=== PATIENT | male | born 1985 | race American Indian/Alaskan Native ===

== ENCOUNTER 2019-04-03 21:30 | Emergency (ER) | payer SELFPAY ==
--- NOTE | 2019-04-03 21:50 | Emergency Department Report ---
Blank Doc - Documentation Documentation: This is a 33-year-old male that presents with medical evaluation for psych. S tatkuldeep has been taking his medications. Denies any SI/HI. This initial assessment/diagnostic orders/clinical plan/treatment(s) is/are subject to change based on patient's health status, clinical progression and re- assessment by fellow clinical providers in the ED. Further treatment and workup at subsequent clinical providers discretion. Patient/guardians urged not to elope from the ED as their condition may be serious if not clinically assessed and managed. Initial orders include: 1- Patient sent to MAIN ED for further evaluation and treatment 2- gang hemstitching machine operator was notified to have patient be brought back [facility]. 3- RN was notified to keep patient as close range and observation until room available 4- labs
[2019-04-03 21:52] VITALS: BP 137/97
[2019-04-03 22:41] LABS: Basophils % (Auto) 0.4 % (0.0-1.8); Eosinophils # (Auto) 0.1 K/mm3 (0.0-0.4); Eosinophils % (Auto) 3.4 % (0.0-4.3); Hemoglobin 14.3 gm/dl (11.8-15.2); Lymphocytes % (Auto) 27.4 % (13.4-35.0); Mean Corpuscular HGB Conc 34 % (32-34); Mean Corpuscular Volume 86 fl (84-94); Monocytes # (Auto) 0.2 K/mm3 (0.0-0.8); Monocytes % (Auto) 5.7 % (0.0-7.3); Platelet Count 183 K/mm3 (140-440); Red Blood Count 4.88 M/mm3 (3.65-5.03); Red Cell Distribution Width 15.4 % (13.2-15.2)
[2019-04-03 23:01] LABS: BUN/Creatinine Ratio 9; Blood Urea Nitrogen 9 mg/dL (9-20); Calcium 9.1 mg/dL (8.4-10.2); Hemolysis Index 5
== END 2019-04-04 00:01 | disposition left against medical advice (07) ==
LOC: ED 21:30
DX: R45.81 Low self-esteem (principal); Z53.21 Procedure and treatment not carried out due to patient leaving prior to being seen by health care provider
CPT/HCPCS: 36415; 80048; 85025; G0480; 80320

== ENCOUNTER 2019-04-08 13:24 | Emergency (ER) | payer SELFPAY ==
--- NOTE | 2019-04-08 13:41 | Emergency Department Report ---
Blank Doc - Documentation Documentation: his is a 33-year-old male that presents with SI. Stated has depression. Stated wants to overdose. Denies any HI. This initial assessment/diagnostic orders/clinical plan/treatment(s) is/are subject to change based on patient's health status, clinical progression and re-assessment by fellow clinical providers in the ED. Further treatment and workup at subsequent clinical providers discretion. Patient/guardians urged not to elope from the ED as their condition may be serious if not clinically assessed and managed. Initial orders include: 1- Patient sent to MAIN ED for further evaluation and treatment 2- carpet cleaner was notified to have patient be brought back [facility]. 3- RN was notified to keep patient as close range and observation until room available 4- Patient presents with substantial risk of imminent harm to self, appears to be so unable to care for his/her own physical health and safety as to create an imminently life-endangering crisis, and has committed/expressed life endangering crisis to self. Due to this and other complaints, patient is put on 1013.
[2019-04-08 14:23] LABS: Bacteria,Urine 1+ /HPF (Negative); Bilirubin,Urine NEG (Negative); Blood,Urine NEG (Negative); Color,Urine Straw (Yellow); Mucus,Urine FEW /HPF; Protein,Urine <15 mg/dL mg/dL (Negative); Urobilinogen,Urine < 2.0 mg/dL (<2.0); WBC,Urine < 1.0 /HPF (0.0-6.0)
--- NOTE | 2019-04-08 14:32 | Emergency Department Report ---
ED Psych HPI - General Chief Complaint: Psych Stated Complaint: EVAL Time Seen by Provider: 04/08/19 13:40 Source: patient Mode of arrival: Ambulatory - History of Present Illness Initial Comments: 33-year-old male came to triage stating that he wants to "be enrolled in a mental health program". Apparently he had a 1013 signed at [facility] referring to suicidal ideation. The patient is not expressing any suicidal ideation to me now. He states that he had been on a Haldol shot but has not had it recently. He admits to homelessness. He states for the last 3 days he spent at his mother's house. He states he would like to go back on his medicine for his mental health issues. He is not actively suffering from hallucinosis. He does also admit that he has HIV which he found out about 1 year ago when he was in intermediate. He is not compliant with his HIV medicines as well. He has no real active complaints at this time other than he would like to be placed back on his medicine which she states is Haldol. Complaint: suicidal ideation (varying history will discuss with medical screening) -: year(s) Associated Psychiatric Symptoms: racing thoughts History of same: Yes Quality: intermittent Improves With: none Worsens With: none Context: not taking psychiatric, other (homelessness) Associated Symptoms: denies other symptoms - Related Data Allergies Allergy/AdvReac Type Severity Reaction Status Date / Time No Known Allergies Allergy Unverified 08/03/18 10:57 ED Review of Systems ROS: Stated complaint: EVAL Other details as noted in HPI Constitutional: denies: chills, fever Eyes: denies: eye pain, eye discharge, vision change ENT: denies: ear pain, throat pain Respiratory: denies: cough, shortness of breath, wheezing Cardiovascular: denies: chest pain, palpitations Endocrine: no symptoms reported Gastrointestinal: denies: abdominal pain, nausea, diarrhea Genitourinary: denies: urgency, dysuria Musculoskeletal: denies: back pain, joint swelling, arthralgia Skin: denies: rash, lesions Neurological: denies: headache, weakness, paresthesias Psychiatric: as per HPI, other Hematological/Lymphatic: denies: easy bleeding, easy bruising ED Past Medical Hx - Past Medical History Hx Psychiatric Treatment: Yes (bipolar, schizophrenia) - Surgical History Past Surgical History?: No - Social History Smoking Status: Current Every Day Smoker Substance Use Type: Alcohol, Cocaine, Marijuana ED Physical Exam - General Limitations: No Limitations General appearance: alert, in no apparent distress - Head Head exam: Present: atraumatic, normocephalic - Eye Eye exam: Present: normal appearance. Absent: scleral icterus - ENT ENT exam: Present: mucous membranes moist - Neck Neck exam: Present: normal inspection - Respiratory Respiratory exam: Present: normal lung sounds bilaterally. Absent: respiratory distress - Cardiovascular Cardiovascular Exam: Present: regular rate, normal rhythm. Absent: systolic murmur, diastolic murmur, rubs, gallop - GI/Abdominal GI/Abdominal exam: Present: soft, normal bowel sounds. Absent: distended, tenderness, guarding, rebound - Rectal Rectal exam: Present: deferred - Extremities Exam Extremities exam: Present: normal inspection - Back Exam Back exam: Present: normal inspection - Neurological Exam Neurological exam: Present: alert, oriented X3, CN II-XII intact. Absent: motor sensory deficit - Psychiatric Psychiatric exam: Present: normal mood, flat affect, other (normal pressured speech) - Skin Skin exam: Present: warm, dry, intact, normal color. Absent: rash ED Course Vital Signs 04/08/19 04/08/19 04/09/19 13:42 19:30 02:17 Temperature 98.5 F 98.6 F 98.3 F Pulse Rate 123 H 84 72 Respiratory 20 14 16 Rate Blood Pressure 161/83 Blood Pressure 134/76 110/69 [Left] O2 Sat by Pulse 100 97 98 Oximetry - Reevaluation(s) Reevaluation #1: Patient will have laboratory screening as well as evaluation by the mental health counselor. I do not fine at this point he is meeting 1013 criteria. However we will reevaluate that. 04/08/19 14:31 ED Medical Decision Making - Lab Data Result diagrams: 04/08/19 14:41 04/08/19 14:41 Laboratory Results - last 24 hr 04/08/19 04/08/19 04/08/19 14:08 14:41 14:41 WBC 3.7 L RBC 4.70 Hgb 13.3 Hct 41.2 MCV 88 MCH 28 MCHC 32 RDW 15.2 Plt Count 230 Lymph % (Auto) 12.3 L [place] % (Auto) 5.9 Eos % (Auto) 0.5 Baso % (Auto) 0.5 Lymph # 0.5 L [place] # 0.2 Eos # 0.0 Baso # 0.0 Seg Neutrophils % 80.3 H Seg Neutrophils # 3.0 Sodium 137 Potassium 4.5 Chloride 98.9 Carbon Dioxide 25 Anion Gap 18 BUN 8 L Creatinine 1.2 Estimated GFR > 60 BUN/Creatinine Ratio 7 Glucose 104 H Calcium 9.4 Urine Color Straw Urine Turbidity Clear Urine pH 5.0 Ur Specific [place] 1.013 Urine Protein <15 mg/dl Urine Glucose (UA) Neg Urine Ketones Neg Urine Blood Neg Urine Nitrite Neg Urine Bilirubin Neg Urine Urobilinogen < 2.0 Ur Leukocyte Esterase Neg Urine WBC (Auto) < 1.0 Urine RBC (Auto) 1.0 U Epithel Cells (Auto) < 1.0 Urine Bacteria (Auto) 1+ Urine Mucus Few Urine Opiates Screen Urine Methadone Screen Ur Barbiturates Screen Ur Phencyclidine Scrn Ur Amphetamines Screen U Benzodiazepines Scrn Urine Cocaine Screen U Marijuana (THC) Screen Drugs of Abuse Note Plasma/Serum Alcohol 04/08/19 04/08/19 14:41 Unknown WBC RBC Hgb Hct MCV MCH MCHC RDW Plt Count Lymph % (Auto) [place] % (Auto) Eos % (Auto) Baso % (Auto) Lymph # [place] # Eos # Baso # Seg Neutrophils % Seg Neutrophils # Sodium Potassium Chloride Carbon Dioxide Anion Gap BUN Creatinine Estimated GFR BUN/Creatinine Ratio Glucose Calcium Urine Color Urine Turbidity Urine pH Ur Specific [place] Urine Protein Urine Glucose (UA) Urine Ketones Urine Blood Urine Nitrite Urine Bilirubin Urine Urobilinogen Ur Leukocyte Esterase Urine WBC (Auto) Urine RBC (Auto) U Epithel Cells (Auto) Urine Bacteria (Auto) Urine Mucus Urine Opiates Screen Presumptive negative Urine Methadone Screen Presumptive negative Ur Barbiturates Screen Presumptive negative Ur Phencyclidine Scrn Presumptive negative Ur Amphetamines Screen Presumptive negative U Benzodiazepines Scrn Presumptive negative Urine Cocaine Screen Presumptive negative U Marijuana (THC) Screen Presumptive negative Drugs of Abuse Note Disclamer Plasma/Serum Alcohol < 0.01 Critical care attestation.: If time is entered above; I have spent that time in minutes in the direct care of this critically ill patient, excluding procedure time. ED Disposition Clinical Impression: Suicidal ideation Schizophrenia Qualifiers: Schizophrenia type: unspecified Qualified Code(s): F20.9 - Schizophrenia, unspecified Disposition: DC/TX-65 PSY HOSP/PSY UNIT Is pt being admited?: No Does the pt Need Aspirin: No Condition: Stable Time of Disposition: 07:01
[2019-04-08 14:38] LABS: Amphetamine Screen,Urine PRESUMPTIVE NEGATIVE; Benzodiazepines Screen,Urine PRESUMPTIVE NEGATIVE; Cannabinoid Screen,Urine PRESUMPTIVE NEGATIVE; Cocaine Screen,Urine PRESUMPTIVE NEGATIVE; Methadone Screen,Urine PRESUMPTIVE NEGATIVE; Opiate Screen,Urine PRESUMPTIVE NEGATIVE
[2019-04-08 15:04] LABS: Hematocrit 41.2 % (35.5-45.6); Hemoglobin 13.3 gm/dl (11.8-15.2)
[2019-04-08 15:05] LABS: Lymphocytes % (Auto) 12.3 % (13.4-35.0); Mean Corpuscular HGB Conc 32 % (32-34); Mean Corpuscular Volume 88 fl (84-94); Monocytes % (Auto) 5.9 % (0.0-7.3); Platelet Count 230 K/mm3 (140-440); Red Cell Distribution Width 15.2 % (13.2-15.2)
[2019-04-08 15:06] LABS: Basophils % (Auto) 0.5 % (0.0-1.8); Eosinophils % (Auto) 0.5 % (0.0-4.3); Lymphocytes # (Auto) 0.5 K/mm3 (1.2-5.4); Monocytes # (Auto) 0.2 K/mm3 (0.0-0.8)
[2019-04-08 15:07] LABS: BUN/Creatinine Ratio 7; Blood Urea Nitrogen 8 mg/dL (9-20); Calcium 9.4 mg/dL (8.4-10.2); Hemolysis Index 16
[2019-04-08] MEDS ORDERED: MILK OF MAGNESIA PO PRN (15:15)
[2019-04-08] MEDS ORDERED: TYLENOL PO PRN (15:15)
[2019-04-08] MEDS ORDERED: ALUM-MAG HYDROX-SIMETH 200-200-20MG/5ML PO PRN (15:15)
[2019-04-08 15:24] LABS: Alanine Aminotransferase 19 units/L (7-56); Albumin 4.2 g/dL (3.9-5)
[2019-04-08 15:28] LABS: Bilirubin,Direct < 0.2 mg/dL (0-0.2)
[2019-04-08] MEDS: GEODON PO SCH ×2 (19:09→21:45)
[2019-04-09 08:12] VITALS: BP 111/79
--- NOTE | 2019-04-09 10:08 | Consultation ---
History of Present Illness - Reason for Consult Consult date: 04/09/19 Reason for consult: Mental Health Evaluation Requesting physician: AARON ESPINOZA - Chief Complaint Chief complaint: "I was hot" - History of Present Psychiatric Illness 33 y.o. SONIA foster who presented to the ER for possible SI's. Today the patient was calm and cooperative during the assessment. He stated that he reside with his mother sometimes and was recently [facility]. He stated that he came to ER because of homelessness. He stated that it was "hot" outside and needed somewhere to go. He was asked about his mental health, he stated that he saw a psychiatrist when he was "locker up." He stated that he took psy medications a few times while in nursing home. He stated that his main issue is "getting with" the [facility] so they can mange his HIV. He stated that he may have mentioned being suicidal yesterday because he wanted to get off the "streets." He denies SI/HI's and AVH's. He denies erratic sleep and a poor appetite. He denies recreational drug use and alcohol consumption (etoh). Medications and Allergies Allergies Allergy/AdvReac Type Severity Reaction Status Date / Time No Known Allergies Allergy Unverified 08/03/18 10:57 Home Medications Medication Instructions Recorded Confirmed Last Taken Type cefUROXime [Ceftin] 250 mg PO Q12H #10 tablet 04/09/19 Unknown Rx Active Meds: Active Medications Acetaminophen (Tylenol) 650 mg PO Q4HR PRN PRN Reason: Pain MILD(1-3)/Fever >100.5/STINSON Al Hydrox/Mg Hydrox/Simethicone (Alum-Mag Hydrox-Simeth [id number]/5ml) 30 ml PO Q4HR PRN PRN Reason: Indigestion Magnesium Hydroxide (Milk Of Magnesia) 30 ml PO Q12HR PRN PRN Reason: Constipation Ziprasidone (Geodon) 20 mg PO BID PRATIBHA Last Admin: 04/08/19 21:45 Dose: 20 mg Documented by: Past psychiatric history - Past Medical History Past Medical History: HIV/AIDS Past Surgical History: No surgical history - past Psychiatric treatment and history psychiatric treatment history: Seen by psychiatry when incarcerated per the patient. Denies a fam psy hx. - Social History Social history: other (Homeless) Mental Status Exam - Vital signs Last Vital Signs Temp 97.7 F 04/09/19 08:11 Pulse 76 04/09/19 08:11 Resp 18 04/09/19 08:11 BP 111/79 04/09/19 08:11 Pulse Ox 99 04/09/19 08:11 - Exam Narrative exam: MSE: Appearance: calm, cooperative Behavior: regular eye contact Speech: regular rate and tone Mood: "okay" Affect: congruent to mood Thought Process: circumstantial Thought Content: denies SI/HI's and AVH's Motor Activity: ambulatory Cognition: A/O x3 Insight: fair Judgment: fair Results Result Diagrams: 04/08/19 14:41 04/08/19 14:41 Abnormal lab results 04/08/19 04/08/19 04/08/19 Range/Units 14:41 14:41 14:41 WBC 3.7 L (4.5-11.0) K/mm3 Lymph % (Auto) 12.3 L (13.4-35.0) % Lymph # 0.5 L (1.2-5.4) K/mm3 Seg Neutrophils % 80.3 H (40.0-70.0) % BUN 8 L (9-20) mg/dL Glucose 104 H (75-100) mg/dL Salicylates < 0.3 L (2.8-20.0) mg/dL Acetaminophen (10.0-30.0) ug/mL 04/08/19 Range/Units 14:41 WBC (4.5-11.0) K/mm3 Lymph % (Auto) (13.4-35.0) % Lymph # (1.2-5.4) K/mm3 Seg Neutrophils % (40.0-70.0) % BUN (9-20) mg/dL Glucose (75-100) mg/dL Salicylates (2.8-20.0) mg/dL Acetaminophen < 5.0 L (10.0-30.0) ug/mL All other labs normal. Assessment and Plan Assessment and plan: Impression: Today the patient was calm and cooperative during the assessment. The patient is no threat to self. Recommendation/Plan: Rescind 1013. Case Mgmt involvement, the patient may need assistance with placement and information about [facility]. Dispo: The patient can follow up with [facility] for outpatient psy services. Will staff with Dr Carissa Caldwell.
[2019-04-09] MEDS: GEODON PO SCH (10:55)
== END 2019-04-09 13:30 | disposition home or self-care (01) ==
LOC: ED 13:24 → EEVIPCON 13:24 → ED 04-09 13:30
DX: F20.9 Schizophrenia, unspecified (principal); Z59.0 Homelessness
CPT/HCPCS: 36415; 80048; 80076; 80307; 81001; 85025; 99284; G0480; 80320

== ENCOUNTER 2019-04-10 07:47 | Emergency (ER) | payer SELFPAY ==
[2019-04-10 08:18] LABS: Basophils % (Auto) 0.5 % (0.0-1.8); Eosinophils # (Auto) 0.1 K/mm3 (0.0-0.4); Eosinophils % (Auto) 1.3 % (0.0-4.3); Hematocrit 40.9 % (35.5-45.6); Hemoglobin 13.5 gm/dl (11.8-15.2); Lymphocytes # (Auto) 0.9 K/mm3 (1.2-5.4); Mean Corpuscular HGB Conc 33 % (32-34); Mean Corpuscular Volume 86 fl (84-94); Monocytes # (Auto) 0.4 K/mm3 (0.0-0.8); Platelet Count 241 K/mm3 (140-440); Red Blood Count 4.75 M/mm3 (3.65-5.03)
[2019-04-10 08:39] LABS: BUN/Creatinine Ratio 8; Blood Urea Nitrogen 9 mg/dL (9-20); Calcium 9.4 mg/dL (8.4-10.2); Hemolysis Index 12
--- NOTE | 2019-04-10 09:05 | Emergency Department Report ---
ED Psych HPI - General Chief Complaint: Psych Stated Complaint: SI Time Seen by Provider: 04/10/19 08:53 Source: patient Mode of arrival: Ambulatory - History of Present Illness Initial Comments: Patient is a 33-year-old mellitus emergency room with complaints of suicidal ideation. Patient states his plan is to overdose. Patient states he has lots of mental problems. Patient denies homicidal and audiovisual hallucinations. Patient denies chest pain shortness of breath. Patient denies fever chills. Patient denies physical complaints. MD Complaint: suicidal ideation, feels depressed -: Sudden Associated Psychiatric Symptoms: depression, suicidal ideation History of same: Yes Quality: constant Improves With: none Worsens With: none Associated Symptoms: denies other symptoms. denies: confusion, headache, shortness of breath, nausea, vomiting, syncope, insomnia, other If Self Harm: admits thoughts of, has plan - Related Data Allergies Allergy/AdvReac Type Severity Reaction Status Date / Time No Known Allergies Allergy Unverified 08/03/18 10:57 ED Review of Systems ROS: Stated complaint: SI Other details as noted in HPI Constitutional: denies: chills, fever Eyes: denies: eye pain, eye discharge, vision change ENT: denies: ear pain, throat pain Respiratory: denies: cough, shortness of breath, wheezing Cardiovascular: denies: chest pain, palpitations Endocrine: no symptoms reported Gastrointestinal: denies: abdominal pain, nausea, diarrhea Genitourinary: denies: urgency, dysuria Musculoskeletal: denies: back pain, joint swelling, arthralgia Skin: denies: rash, lesions Neurological: denies: headache, weakness, paresthesias Psychiatric: depression, suicidal thoughts. denies: anxiety Hematological/Lymphatic: denies: easy bleeding, easy bruising ED Past Medical Hx - Past Medical History Previous Medical History?: Yes Hx Psychiatric Treatment: Yes (bipolar, schizophrenia) Hx HIV: Yes - Surgical History Past Surgical History?: No - Family History Family history: no significant - Social History Smoking Status: Current Every Day Smoker Substance Use Type: None ED Physical Exam - General Limitations: No Limitations General appearance: alert, in no apparent distress - Head Head exam: Present: atraumatic, normocephalic - Eye Eye exam: Present: normal appearance - ENT ENT exam: Present: mucous membranes moist - Neck Neck exam: Present: normal inspection - Respiratory Respiratory exam: Present: normal lung sounds bilaterally. Absent: respiratory distress - Cardiovascular Cardiovascular Exam: Present: regular rate, normal rhythm. Absent: systolic murmur, diastolic murmur, rubs, gallop - GI/Abdominal GI/Abdominal exam: Present: soft, normal bowel sounds - Rectal Rectal exam: Present: deferred - Extremities Exam Extremities exam: Present: normal inspection - Back Exam Back exam: Present: normal inspection - Neurological Exam Neurological exam: Present: alert, oriented X3 - Psychiatric Psychiatric exam: Present: depressed, suicidal ideation - Skin Skin exam: Present: warm, dry, intact, normal color. Absent: rash ED Course Vital Signs 04/10/19 07:53 Temperature 98.2 F Pulse Rate 98 H Respiratory 16 Rate Blood Pressure 142/82 O2 Sat by Pulse 99 Oximetry - Reevaluation(s) Reevaluation #1: Initial evaluation done. Patient placed on 1013. 04/10/19 09:14 Reevaluation #2: Discussed all results with patient. Patient is medically cleared and will remain on a 1013. 04/10/19 13:36 ED Medical Decision Making - Lab Data Result diagrams: 04/10/19 08:06 04/10/19 08:06 - Medical Decision Making Patient is 33-year-old male that presents emergency with suicidal ideations and with the plan. Patient placed on a 1013. Patient's labs done and unremarkable. Patient is medically cleared. Patient will remain in The ER until transfer to a psychiatric facility. - Differential Diagnosis suicidal ideations. Depression. Critical care attestation.: If time is entered above; I have spent that time in minutes in the direct care of this critically ill patient, excluding procedure time. ED Disposition Clinical Impression: Suicidal ideations Disposition: DC/TX-65 PSY HOSP/PSY UNIT Is pt being admited?: No Does the pt Need Aspirin: No Condition: Stable Additional Instructions: Patient is medically cleared Referrals: TYRA ANN MD [Primary Care Provider] - 3-5 Days Time of Disposition: 13:37
[2019-04-10 10:38] LABS: Bilirubin,Urine NEG (Negative); Blood,Urine NEG (Negative); Color,Urine Yellow (Yellow); Mucus,Urine FEW /HPF; Protein,Urine <15 mg/dL mg/dL (Negative); Urobilinogen,Urine < 2.0 mg/dL (<2.0); WBC,Urine < 1.0 /HPF (0.0-6.0)
[2019-04-10 10:52] LABS: Amphetamine Screen,Urine PRESUMPTIVE NEGATIVE; Benzodiazepines Screen,Urine PRESUMPTIVE NEGATIVE; Cannabinoid Screen,Urine PRESUMPTIVE NEGATIVE; Cocaine Screen,Urine PRESUMPTIVE NEGATIVE; Methadone Screen,Urine PRESUMPTIVE NEGATIVE; Opiate Screen,Urine PRESUMPTIVE NEGATIVE
--- NOTE | 2019-04-11 12:47 | Consultation ---
History of Present Illness - Reason for Consult Consult date: 04/11/19 Reason for consult: Mental Health EValuation Requesting physician: SIMI MORRIS III - Chief Complaint Chief complaint: "I came back" - History of Present Psychiatric Illness 33 y.o. AA male who presented to the ER for SI's and bizarre behavior. Today the patient was calm, but disorganized during the assessment. He was discharged from the ER 04/09/2019. He was asked why he returned to the ER within 24 hours, his answers were not logical. He mentioned something about "smoking," but his UDS was negative. He stated, "I'm good now." The patient was looking around throughout the interview, possibly responding to some type of stimuli. Overall, the patient isn't a good historian. He denies SI/HI's. Medications and Allergies Allergies Allergy/AdvReac Type Severity Reaction Status Date / Time No Known Allergies Allergy Unverified 08/03/18 10:57 Home Medications Medication Instructions Recorded Confirmed Last Taken Type Unobtainable 04/10/19 04/10/19 Unknown History Past psychiatric history - Past Medical History Past Medical History: HIV/AIDS Past Surgical History: No surgical history - past Psychiatric treatment and history psychiatric treatment history: Took psy medication when incarcerated. Denies a fam psy hx. - Social History Social history: lives with family Mental Status Exam - Vital signs Last Vital Signs Temp 98.6 F 04/11/19 00:00 Pulse 89 04/11/19 00:00 Resp 16 04/11/19 00:00 BP 123/59 04/11/19 00:00 Pulse Ox 100 04/11/19 00:00 - Exam Narrative exam: MSE: Appearance: calm Behavior: regular eye contact Speech: regular rate and tone Mood: preoccupied Affect: congruent to mood Thought Process: disorganized Thought Content: denies SI/HI's Motor Activity: ambulatory Cognition: A/O x3 Insight: poor Judgment: poor Results Result Diagrams: 04/10/19 08:06 04/10/19 08:06 All other labs normal. Assessment and Plan Assessment and plan: Impression: Unspecified Psychosis. Today the patient was calm, but disorganized during the assessment. UDS is negative. DDx: MDD with psychosis Recommendation/Plan: Continue 1013. Start Geodon 20 mg PO BID for psychosis and Cogentin 0.5 mg PO BID for E{S prevention. Attempted to discuss possible metabolic side effects of Geodon with the patient. Admin Geodon with food. Dispo: The patient was referred to inpatient psy services. Will staff with Dr Carissa Caldwell.
[2019-04-11] MEDS: COGENTIN PO SCH ×2 (13:10→22:04)
[2019-04-11] MEDS: GEODON PO SCH ×2 (13:10→22:05)
[2019-04-12] MEDS: COGENTIN PO SCH ×2 (10:21→22:12)
[2019-04-12] MEDS: GEODON PO SCH ×2 (10:21→22:12)
--- NOTE | 2019-04-12 13:06 | Progress Note ---
Subjective - Reason for Consult Consult date: 04/12/19 Reason for consult: Psychiatry Follow-up - Chief Complaint Chief complaint: "I'm good" 33 y.o. AA male who presented to the ER for SI's and bizarre behavior. Today the patient was calm but still disorganized during the assessment. Overall, the patient's presentation have not changed since yesterday. He denies SI/HI's. Mental Status Exam - Vital signs Last Vital Signs Temp 98.4 F 04/12/19 07:36 Pulse 72 04/12/19 07:36 Resp 18 04/12/19 07:36 BP 132/84 04/12/19 07:36 Pulse Ox 100 04/12/19 01:23 - Exam Narrative exam: MSE: Appearance: calm Behavior: regular eye contact Speech: regular rate and tone Mood: preoccupied Affect: congruent to mood Thought Process: still disorganized Thought Content: denies SI/HI's Motor Activity: ambulatory Cognition: A/O x3 Insight: poor Judgment: poor Assessment and Plan Impression: Unspecified Psychosis. Today the patient was calm, but disorganized during the assessment. UDS is negative. DDx: MDD with psychosis Recommendation/Plan: Continue 1013, and increase Geodon to 40 mg PO BID for psychosis, and Cogentin 0.5 mg PO BID for E{S prevention. Attempted to discuss possible metabolic side effects of Geodon with the patient. Admin Geodon with food. Dispo: The patient was referred to inpatient psy services. Will staff with Dr Carissa Caldwell.
[2019-04-13] MEDS: COGENTIN PO SCH ×2 (10:57→22:33)
[2019-04-13] MEDS: GEODON PO SCH ×2 (10:57→22:33)
--- NOTE | 2019-04-13 19:04 | Progress Note ---
Subjective - Reason for Consult Consult date: 04/13/19 Reason for consult: follow up - Chief Complaint Chief complaint: "I'm good" 33 y.o. AA male who presented to the ER for SI's and bizarre behavior. Today the patient was calm but still disorganized during the assessment. He wants to know where he is going. He offers minimal information on interview. He denies SI/HI's. He had his labs drawn for cd4 and viral load for HIV. This will have a 1 week t urn around time for result. He told staff he has never taken HIV meds. Mental Status Exam - Vital signs Last Vital Signs Temp 99.5 F 04/13/19 14:39 Pulse 116 H 04/13/19 14:39 Resp 18 04/13/19 14:39 BP 143/77 04/13/19 14:39 Pulse Ox 100 04/13/19 14:39 - Exam Narrative exam: MSE: Appearance: calm Behavior: regular eye contact Speech: regular rate and tone Mood: preoccupied Affect: congruent to mood Thought Process: disorganized Thought Content: denies SI/HI's Motor Activity: ambulatory Cognition: A/O x3 Insight: poor Judgment: poor Assessment and Plan Impression: Unspecified Psychosis. Today the patient was calm, but disorganized during the assessment. UDS is negative. He had his labs drawn for cd4 and viral load for HIV. This will have a 1 week turn around time for result. He told staff he has never taken HIV meds. DDx: MDD with psychosis He does not have any acute physical complaints. He is able to complete ADLs. Recommendation/Plan: Continue 1013, and continue Geodon to 40 mg PO BID for psychosis, and Cogentin 0.5 mg PO BID for EPS prevention. Attempted to discuss possible metabolic side effects of Geodon with the patient. Admin Geodon with food. Dispo: The patient was referred to inpatient psy services. staffed with Dr Carissa Caldwell.
[2019-04-14] MEDS: GEODON PO SCH ×2 (11:34→22:07)
[2019-04-14] MEDS: COGENTIN PO SCH ×2 (11:34→22:07)
--- NOTE | 2019-04-14 18:05 | Progress Note ---
Subjective - Reason for Consult Consult date: 04/14/19 Reason for consult: follow up - Chief Complaint Chief complaint: "I feel good about the plan." 33 y.o. AA male who presented to the ER for SI's and bizarre behavior. Today the patient was calm but guarded. He offers minimal information on interview. He denies SI/HI's. He had his labs drawn for cd4 and viral load for HIV. This will have a 1 week turn around time for result. He told staff he has never taken HIV meds. Mental Status Exam - Vital signs Last Vital Signs Temp 98.2 F 04/14/19 13:34 Pulse 87 04/14/19 13:34 Resp 18 04/14/19 13:34 BP 134/71 04/14/19 13:34 Pulse Ox 100 04/14/19 13:34 - Exam Narrative exam: MSE: Appearance: calm Behavior: regular eye contact Speech: regular rate and tone Mood: preoccupied Affect: congruent to mood Thought Process: disorganized Thought Content: denies SI/HI's Motor Activity: ambulatory Cognition: A/O x3 Insight: poor Judgment: poor Assessment and Plan Impression: Unspecified Psychosis. Today the patient was calm and guarded during the assessment. UDS is negative. He had his labs drawn for cd4 and viral load for HIV. This will have a 1 week turn around time for result. He told staff he has never taken HIV meds. DDx: MDD with psychosis He does not have any acute physical complaints. He is able to complete ADLs. Recommendation/Plan: Continue 1013, and continue Geodon to 40 mg PO BID for psychosis, and Cogentin 0.5 mg PO BID for EPS prevention. Attempted to discuss possible metabolic side effects of Geodon with the patient. Admin Geodon with food. Dispo: The patient was referred to inpatient psy services. [facility]. staffed with Dr Carissa Caldwell.
[2019-04-15] MEDS: COGENTIN PO SCH (11:00)
[2019-04-15] MEDS: GEODON PO SCH (11:00)
[2019-04-15 12:17] VITALS: BP 115/68
--- NOTE | 2019-04-15 14:07 | Progress Note ---
Subjective - Reason for Consult Consult date: 04/15/19 Reason for consult: Psychiatry Follow-up - Chief Complaint Chief complaint: "I feel good" 33 y.o. AA male who presented to the ER for SI's and bizarre behavior. Today the patient was calm, but still disorganized during the assessment. His answers to questions were not logical. He still appeared to be preoccupied. He denies SI/HI's and AVH's. No indications of side effects of side effects of his me dications. Mental Status Exam - Vital signs Last Vital Signs Temp 97.6 F 04/15/19 07:34 Pulse 73 04/15/19 07:34 Resp 18 04/15/19 07:34 BP 115/68 04/15/19 07:34 Pulse Ox 99 04/15/19 07:34 - Exam Narrative exam: MSE: Appearance: calm Behavior: regular eye contact Speech: regular rate and tone Mood: somewhat preoccupied Affect: congruent to mood Thought Process: still disorganized, loose associations Thought Content: denies SI/HI's Motor Activity: ambulatory Cognition: A/O x3 Insight: poor Judgment: poor Assessment and Plan Impression: Unspecified Psychosis. Today the patient was calm, but still disorganized during the assessment. UDS is negative. DDx: MDD with psychosis Recommendation/Plan: Continue 1013, Geodon to 40 mg PO BID for psychosis, and Cogentin 0.5 mg PO BID for E{S prevention. Attempted to discuss possible metabolic side effects of Geodon with the patient. Admin Geodon with food. Dispo: The patient was accepted at [facility]. Will staff with Dr Carissa Caldwell.
[2019-04-16 21:03] LABS: HIV-1 RNA QN PCR 4.54 Log cps/mL
[2019-04-26 13:10] LABS: CD19, Absolute SEE SCANNED RESULT; CD3, Absolute SEE SCANNED RESULT; CD3, Percentage SEE SCANNED RESULT; CD4, Absolute SEE SCANNED RESULT; CD4, Percentage SEE SCANNED RESULT; CD4/CD8 Ratio SEE SCANNED RESULT; CD8, Absolute SEE SCANNED RESULT; CD8, Percentage SEE SCANNED RESULT; Lymphocytes, Absolute SEE SCANNED RESULT
== END 2019-04-15 13:26 ==
LOC: EEVIPCON 07:47 → ED 07:47
DX: F32.9 Major depressive disorder, single episode, unspecified (principal); F29 Unspecified psychosis not due to a substance or known physiological condition; F31.9 Bipolar disorder, unspecified; F20.9 Schizophrenia, unspecified; F17.200 Nicotine dependence, unspecified, uncomplicated
CPT/HCPCS: 36415; 80048; 80307; 80320; 81001; 82024; 85025; 87536; G0480